=== PATIENT | female | born 1980 | race African-American/Black ===

== ENCOUNTER 2017-01-24 15:59 | Emergency (ER) | payer OTHER ==
[2017-01-24 16:07] VITALS: BP 138/90; PULSE 90; TEMP 98.1; BMI 46.5
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
[2017-01-24] MEDS ORDERED: DIPHTH,PERTUSS(ACELL),TET 0.5 ML DISP.SYRIN IM ONE (16:23)
[2017-01-24] MEDS ORDERED: HEPATITIS B IMMUNE GLOBULIN 5 ML VIAL IM ONE (16:36)
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
[2017-01-24 17:52] LABS: HIV 1 & 2 AB NEGATIVE; HIV 1 AGp24 NEGATIVE
== END 2017-01-24 18:52 | disposition home or self-care (01) ==
LOC: JERFT 15:59
PROC: 3E023GC Introduction of Other Therapeutic Substance into Muscle, Percutaneous Approach (ICD-10-PCS; principal; 2017-01-24)
DX: S51.851A Open bite of right forearm, initial encounter (principal); Y04.1XXA Assault by human bite, initial encounter; Y93.89 Activity, other specified; Y92.159 Unspecified place in reform school as the place of occurrence of the external cause; Y99.0 Civilian activity done for income or pay
CPT/HCPCS: 36415; 80074; 87389; 99281-25

== ENCOUNTER 2017-03-10 10:45 | Emergency (ER) | payer OTHER ==
[2017-03-10 10:55] VITALS: BP 132/83; PULSE 85; TEMP 98; BMI 44.7
[2017-03-10] MEDS ORDERED: KETOROLAC TROMETHAMINE 60 MG/2 ML VIAL IM ONE (12:10)
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
[2017-03-10] MEDS ORDERED: ONDANSETRON *ODT* 4 MG TABLET SL ONE (12:53)
[2017-03-10] MEDS ORDERED: ONDANSETRON *ODT* 4 MG TABLET ONE (12:53)
== END 2017-03-10 13:19 | disposition home or self-care (01) ==
LOC: JER 10:45 → JERFT 10:45
PROC: 3E0233Z Introduction of Anti-inflammatory into Muscle, Percutaneous Approach (ICD-10-PCS; principal; 2017-03-10)
DX: S13.4XXA Sprain of ligaments of cervical spine, initial encounter (principal); V43.52XA Car driver injured in collision with other type car in traffic accident, initial encounter; Y92.414 Local residential or business street as the place of occurrence of the external cause; Y93.89 Activity, other specified; Y99.8 Other external cause status
CPT/HCPCS: 72050-TC; 99281-25

== ENCOUNTER 2018-06-24 19:05 | Emergency (ER) | payer OTHER ==
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
[2018-06-24 19:31] VITALS: BP 144/94; PULSE 75; TEMP 98.4; BMI 48.6
[2018-06-24] MEDS ORDERED: KETOROLAC TROMETHAMINE 30 MG/1 ML VIAL IM ONE (19:31)
[2018-06-24] MEDS ORDERED: CYCLOBENZAPRINE HCL 10 MG TABLET (FP) ONE (20:03)
[2018-06-24] MEDS ORDERED: KETOROLAC TROMETHAMINE 30 MG/1 ML VIAL ONE (20:03)
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
[2018-06-24] MEDS ORDERED: CYCLOBENZAPRINE HCL 10 MG TABLET (FP) PO ONE (21:02)
[2018-06-24] MEDS ORDERED: CYCLOBENZAPRINE HCL 5 MG TABLET PO SCH (22:00)
== END 2018-06-24 21:06 | disposition home or self-care (01) ==
LOC: JER 19:05 → JERFT 19:05
PROC: 3E0233Z Introduction of Anti-inflammatory into Muscle, Percutaneous Approach (ICD-10-PCS; principal; 2018-06-24)
DX: S16.1XXA Strain of muscle, fascia and tendon at neck level, initial encounter (principal); M62.838 Other muscle spasm; G89.29 Other chronic pain; X58.XXXA Exposure to other specified factors, initial encounter; Y93.89 Activity, other specified; Y92.89 Other specified places as the place of occurrence of the external cause; Y99.8 Other external cause status
CPT/HCPCS: 84703; 96372; 99281-25

== ENCOUNTER 2018-10-07 20:22 | Emergency (ER) | payer OTHER ==
[2018-10-07 20:31] VITALS: TEMP 99; BMI 43.4
--- NOTE | 2018-10-07 20:32 | PDOC ---
Rapid Medical Evaluation Chief Complaint: Pain, Acute Time Seen by Provider: 10/07/18 20:28 Medical Evaluation: Allergies Allergy/AdvReac Type Severity Reaction Status Date / Time shellfish derived Allergy Verified 12/31/17 16:28 10/07/18 20:28 I have performed a brief in-person evaluation of this patient. The patient presents with a chief complaint of: cramping left lower abdominal pain since start of menstrual period 2 days ago. . Report having blood clot with menstrual period which is unusual for her. Denies urinary symptoms Pertinent physical exam findings: A&O x 3 in NAD I have ordered the following: Uhcg The patient will proceed to the ED for further evaluation Discharge Disposition - Diagnosis Dysmenorrhea, unspecified - Discharge Dispostion Condition at time of disposition: Stable - Referrals - Patient Instructions - Post Discharge Activity
--- NOTE | 2018-10-07 22:44 | PDOC ---
History of Present Illness - General Chief Complaint: Pain, Acute Stated Complaint: ABD PAIN/4 QUADS Time Seen by Provider: 10/07/18 20:28 History Source: Patient - History of Present Illness Initial Comments: 10/07/18 22:41 37 year old female c/o LUQ pain and vaginal bleeding x 5 days usig approxaimtely 3-4 per day. denies nausea., vomiting PMHX: Past History - Past Medical History Allergies/Adverse Reactions: Allergies Allergy/AdvReac Type Severity Reaction Status Date / Time shellfish derived Allergy Verified 10/07/18 20:31 Home Medications: Ambulatory Orders Cyclobenzaprine HCl [Flexeril 10 mg] 10 mg PO HS PRN #10 tablet 06/24/18 Ibuprofen [Motrin -] 600 mg PO TID #30 tablet 06/24/18 NK [No Known Home Medication] 06/24/18 COPD: No CHF: No DVT: No - Suicide/Smoking/Psychosocial Hx Smoking Status: No Smoking History: Never smoked Number of Cigarettes Smoked Daily: 0 Hx Alcohol Use: No Drug/Substance Use Hx: No Substance Use Type: Alcohol Review of Systems - Review of Systems Able to Perform ROS?: Yes Is the patient limited Yakut proficient: No Constitutional: No: Symptoms Reported, See HPI, Chills, Diaphoresis, Fever, Loss of Appetite, Malaise, Night Sweats, Weakness, Weight Stable, Unintentional Wgt. Loss, Unexplained wgt Loss, Other ABD/GI: Yes: Abdominal cramping : No: Symptoms Reported, See HPI, Burning, Dysuria, Discharge, Frequency, Flank Pain, Hematuria, Incontinence, Pain, Urgency, Testicular Mass, Testicular Swelling, Lesions, Testicular Pain, Other *Physical Exam - Vital Signs Last Vital Signs Temp Pulse Resp BP Pulse Ox 99 F 97 H 18 146/68 98 10/07/18 20:28 10/07/18 20:28 10/07/18 20:28 10/07/18 20:28 10/07/18 20:28 - Physical Exam General Appearance: Yes: Appropriately Dressed Respiratory/Chest: positive: Lungs Clear, Normal Breath Sounds Female Pelvic Exam: positive: normal external exam, other (patient refused internal bleeding) Gastrointestinal/Abdominal: positive: Normal Bowel Sounds Musculoskeletal: positive: Normal Inspection Extremity: positive: Normal Capillary Refill, Normal Inspection, Normal Range of Motion Integumentary: positive: Normal Color, Dry, Warm Neurologic: positive: Fully Oriented, Alert ED Treatment Course - LABORATORY CBC & Chemistry Diagram: 10/07/18 23:35 - ADDITIONAL ORDERS Additional order review: Laboratory Results 10/07/18 20:50 Urine HCG, Qual Positive Progress Note - Progress Note Progress Note: A: vaginal bleeding. early P: cbc beta hc Type and screen a+ ua:: wnl no urinary symptoms, TVUS: no IUP. + left ovarian cyst. Medical Decision Making - Medical Decision Making patient was advised to follow up with pcp sushant *DC/Admit/Observation/Transfer Diagnosis at time of Disposition: Vaginal bleeding, Threatened in early - Discharge Dispostion Disposition: HOME Condition at time of disposition: Stable - Referrals Referrals: Alba Hernandez MD [Primary Care Provider] - Micaela Montelongo MD [Staff Physician] - - Patient Instructions Printed Discharge Instructions: DI for Vaginal Bleeding Additional Instructions: return to the ER if you are soaking 2 pads per hour, severe abdominal pain, or worsening symptoms. Additional Instructions: * Please call your personal physician to report your Emergency Department visit and to report your progress, if any. * If there is no improvement in symptoms in 2 days call your physician. * Return to the Emergency Department for any worsening symptoms. - Post Discharge Activity
--- NOTE | 2018-10-07 22:47 | PDOC ---
*Physical Exam - Vital Signs Last Vital Signs Temp Pulse Resp BP Pulse Ox 99 F 97 H 18 146/68 98 10/07/18 20:28 10/07/18 20:28 10/07/18 20:28 10/07/18 20:28 10/07/18 20:28 ED Treatment Course - ADDITIONAL ORDERS Additional order review: Laboratory Results 10/07/18 20:50 Urine HCG, Qual Positive Medical Decision Making - Medical Decision Making 10/07/18 22:47 Patient seen by the advanced practice provider under my direct supervision. Ancillary testing reviewed as necessary. I agree with plan as outlined by the advanced practice provider. *DC/Admit/Observation/Transfer Diagnosis at time of Disposition: Vaginal bleeding - Discharge Dispostion Condition at time of disposition: Stable - Referrals Referrals: Alba Hernandez MD [Primary Care Provider] - - Patient Instructions - Post Discharge Activity
[2018-10-07 23:58] LABS: BASO % 1.2 % (0-2.0); EOS % 1.6 % (0-4.5); HEMATOCRIT 32.4 % (32.4-45.2); HEMOGLOBIN 10.7 GM/dL (10.7-15.3); LYMPH % 30.2 % (8-40); MCH 26.6 pg (25.7-33.7); MEAN CELL VOLUME 80.7 fl (80-96); MEAN PLT VOLUME 8.7 fl (7.5-11.1); MONO % 5.4 % (3.8-10.2); NEUT % 61.6 % (42.8-82.8); PLATELET COUNT 384 K/MM3 (134-434); RBC 4.01 M/mm3 (3.60-5.2); RDW 15.1 % (11.6-15.6); WHITE BLOOD COUNT 8.3 K/mm3 (4.0-10.0)
[2018-10-08 00:50] VITALS: BP 149/66; PULSE 82
[2018-10-08 01:28] LABS: EPI CELLS 2.4 /HPF (0-5/HPF); HYALINE CASTS 2 /lpf (0-8); URINE APPEARANCE CLEAR; URINE BACTERIA 73.5 /hpf (NEGATIVE); URINE BILIRUBIN NEGATIVE (NEGATIVE); URINE COLOR YELLOW; URINE GLUCOSE (UA) NEGATIVE (NEGATIVE); URINE KETONE TRACE (NEGATIVE); URINE LEUK ESTERASE NEGATIVE (NEGATIVE); URINE NITRITE NEGATIVE (NEGATIVE); URINE PROTEIN NEGATIVE (NEGATIVE); URINE RBC 3 /hpf (0-4); URINE UROBILINOGEN 0.2 mg/dL (0.2-1.0); URINE WBC 5 /hpf (0-5)
[2018-10-08 02:26] LABS: URINE CRYSTALS MODERATE URIC ACID /hpf
== END 2018-10-08 02:18 | disposition home or self-care (01) ==
LOC: JER 20:22
DX: O26.891 Other specified pregnancy related conditions, first trimester (principal); O20.0 Threatened abortion; Z3A.01 Less than 8 weeks gestation of pregnancy
CPT/HCPCS: 36415; 76817-TC; 81003; 84702; 84703; 85025; 86850; 86900; 86901; 99283-25